=== PATIENT | male | born 1990 | race Caucasian/White ===

== ENCOUNTER 2023-09-10 19:31 | Emergency (ER) | payer OTHER, SELFPAY ==
[2023-09-10 19:37] VITALS: BP 156/103
[2023-09-10 19:59] LABS: % Basophils 0.7 % (0-2); % Eosinophils 1.6 % (0-6); % Immature Granulocytes 0.4 % (0-0.5); % Lymphocytes 44.8 % (20.5-51.1); % Monocytes 10.5 % (1.7-9.3); Absolute Basophils 0.1 10^3/uL (0-0.2); Absolute Eosinophils 0.1 10^3/uL (0-0.7); Absolute Lymphocytes 3.6 10^3/uL (1.2-3.4); Absolute Monocytes 0.8 10^3/uL (0.1-0.6); Absolute Neutrophils 3.4 10^3/uL (1.4-6.5); Hematocrit 49.9 % (39.0-52.0); Hemoglobin 17.3 g/dL (13.0-18.0); Mean Corp Hgb Conc. 34.7 g/dL (33.0-37.0); Mean Corpuscular Hgb 29.8 pg (27.0-31.0); Mean Corpuscular Volume 85.9 fL (80.0-94.0); Mean Platelet Volume 10.4 fL (7.4-10.4); Nucleated Red Blood Cells % 0 % (-); Platelet Count 264 10^3/uL (130-400); Red Blood Cell Count 5.81 10^6/uL (4.70-6.10); Red Cell Dist. Width 13.2 % (11.5-14.5)
[2023-09-10 20:16] LABS: ALT (SGPT) 72 U/L (0-50); AST (SGOT) 37 U/L (17-59); Albumin 5.2 g/dl (3.5-5.0); Alkaline Phosphatase 63 U/L (38-126); Blood Urea Nitrogen 16 mg/dl (9-20); Calcium 10.3 mg/dl (8.4-10.2); Carbon Dioxide 22 mmol/L (22-30); Chloride 104 mmol/L (98-107); Glucose 97 mg/dl (70-99); Lipase 79 U/L (23-300); Potassium 4.3 mmol/L (3.5-5.1); Sodium 136 mmol/L (135-145); Total Bilirubin 0.9 mg/dl (0.2-1.3); Total Protein 8.3 g/dl (6.3-8.2); eGFR > 60.00
[2023-09-10 20:23] LABS: Troponin I 0.037 ng/ml
[2023-09-10 21:30] VITALS: BP 144/84
[2023-09-10 23:30] VITALS: BP 133/79
--- NOTE | 2023-09-11 00:08 | ED.GENMED ---
History of Present Illness
General
Chief Complaint: Abdominal Symptoms
Source: patient
Exam Limitations: none
Time Seen by Provider: 09/10/23 20:46
Nursing documentation reviewed up to this point in time: agreed with
Travel History
Have you had any contact with someone who has COVID-19?: No
Do you have any symptoms of coronavirus? Fever > 100 degrees, chills, cough, shortness of breath, sore throat, loss of taste or smell, muscle aches, or headache?: No
History of Present Illness
History of Present Illness:
Patient was tested positive for COVID-19 in May, and has had ongoing 'long COVID syndrome', presents to ED secondary to 'lump' felt in his upper abdomen when he stretched his arms this evening, along with pain. Patient has had history of of
inguinal hernia repair, and is wondering whether or not he may be experiencing another abdominal hernia. Denies fever. Denies chest pain. Denies shortness of breath. Denies back pain. Denies direct trauma. Denies recent change in medications
or diet.
Past History
Past History
ED Past Medical History: Asthma and GERD
Social History
Tobacco: Non-smoker
Alcohol: Occasional
Drug: Marijuana
Living: with family
Employment: Employed
Review of Systems
Review of Systems
Allergies reviewed?: Yes
All Other Systems: ROS reviewed and negative except as documented in HPI and ROS
Constitutional: Reports no symptoms; Denies fever
EENT: Reports no symptoms
Respiratory: Reports no symptoms
Cardiac: Reports no symptoms
ABD/GI: Reports abdominal pain
: Reports no symptoms
Musculoskeletal: Reports no symptoms
Skin: Reports other (Skin lump)
Neurological: Reports no symptoms
Phy Exam
Physical Exam
Physical Exam:
Physical Exam
General: no apparent distress, not acutely ill. afebrile
Head: nc/at. eomi
Neck: supple. no meningeal signs.
Heart: s1/s2 regular rate and rhythm, no murmur. equal radial pulses.
Lungs: no acute respiratory distress. clear bilaterally
Abdomen: normal bowel sounds. mild epigastric tenderness noted, without distention/swelling/ecchymosis
Neuro: alert and oriented. no focal neurological deficits
Skin: no rash
Psychiatric: well kept. interactive and cooperative
Extremities: no edema. no calf tenderness.
Course
Orders/Labs/Results
Orders:
Orders
09/10/23 19:39
Electrocardiogram (*1) Urgent
Reason for Study: Abdominal Pain
EKG- Treatment ONCE
09/10/23 19:48
Complete Blood Count/With Diff Urgent
Comprehensive Metabolic Panel Urgent
Lipase Urgent
Troponin I Urgent
09/10/23 21:28
CR Chest - 2 Views Urgent
Comment:
Reason For Exam: chest pain
US Abdomen Complete/Upper Urgent
Comment:
Reason For Exam: epigastric pain with 'mass'
Abnormal Lab Results
09/10/23
19:48
Absolute Lymphs (auto) 3.6 H 10^3/uL
(1.2-3.4)
Absolute Monos (auto) 0.8 H 10^3/uL
(0.1-0.6)
Neutrophils % 42.0 L %
(42.2-75.2)
Monocytes % 10.5 H %
(1.7-9.3)
Calcium 10.3 H mg/dl
(8.4-10.2)
ALT 72 H U/L
(0-50)
Troponin I 0.037 H* ng/ml
Total Protein 8.3 H g/dl
(6.3-8.2)
Albumin 5.2 H g/dl
(3.5-5.0)
09/10/23 19:48
09/10/23 19:48
Vital Signs
Initial and Last Documented VS:
Initial Vital Signs
Temp Pulse Resp BP Pulse Ox
98.7 F 88 18 156/103 98
09/10/23 19:37 09/10/23 19:37 09/10/23 19:37 09/10/23 19:37 09/10/23 19:37
Last Documented Vital Signs
Temp Pulse Resp BP Pulse Ox
98.7 F 72 14 133/79 99
09/10/23 19:37 09/10/23 23:30 09/10/23 23:30 09/10/23 23:30 09/10/23 23:30
MDM/Problems Addressed
MDM/Problems Addressed:
Mildly elevated troponin noted, which appears to be chronic, when reviewing his previous blood work. In addition, history and exam inconsistent with ACS, along with no component of chest pain.
History and exam consistent with likely gastritis versus ventral hernia, now resolved. As such, patient will be discharged home in stable condition, with referral to GI/general surgery for an outpatient consultation.
*Critical Care Note
Total Time (30-74mins, 75-104mins- exclusive of procedures): Not Applicable
ED Attending Note
-
Portions of this chart may have been created with voice recognition software.� Occasional wrong word or��sound alike� substitutions may have occurred due to the inherent limitations of voice recognition software.
Discharge Plan
Departure
Patient Disposition: Home (Routine Discharge)
Date of Disposition: 09/11/23
Time of Disposition: 00:09
Patient with high blood pressure during this ER visit?: Yes
Condition: Good
Discharge Problem:
Abdominal pain
Instructions: Abdominal Hernia (DC), Abdominal Pain
Prescriptions:
No Action
ascorbic acid (vitamin C) [Vitamin C] 500 MG tablet
500 mg PO DAILY PRN (Reason: supplement)
zinc 10 MG tablet
10 mg PO DAILY PRN (Reason: supplement)
ibuprofen [Advil Liqui-Gel] 200 mg Capsule
200 mg PO BIDPRN PRN (Reason: mild pain)
calcium carbonate [Calcium 500] 500 mg calcium (1,250 mg) Tablet
500 mg PO DAILY PRN (Reason: supplement)
testosterone cypionate 200 mg/mL Oil
200 mg IM Q2W
bupropion HCl 300 mg Tablet Extended Release 24 Hr
300 mg PO DAILY
cholecalciferol (vitamin D3) 50 mcg (2,000 unit) Tablet
50 mcg PO DAILY PRN (Reason: supplement)
magnesium citrate 100 mg Tablet
200 mg PO DAILYPRN PRN (Reason: supplement)
potassium 100 mg tablet
100 mg PO DAILYPRN PRN (Reason: supplement)
Referrals:
Della Allen MD [Active] -
Kirk Bland MD [Active] -
UNKNOWN - PT DOES,NOT KNOW [Family Provider] -
Activity Restrictions/Additional Instructions:
As discussed, please follow-up with referred general surgeon and/or GI physician for further evaluation and treatment. Please return to ED with worsening symptoms, i.e. fever/worsening pain/vomiting.
Interventions
Interventions:
*Risk Screen - Suicide Last Done: 09/10/23 21:24
*General Assessment Last Done: 09/10/23 19:38
*Neglect/Abuse Screening Last Done: 09/10/23 21:24
ED- Fall Risk Assessment Last Done: 09/10/23 21:24
*ED COVID-19 Vaccine History Last Done: 09/10/23 19:38
*Nursing Disposition Last Done: 09/11/23 00:32
J[facility]-Mtfe[facility]-[id number] Assessment Last Done: 09/10/23 21:24
Discharge Date and Time
Discharge Date/Time: 09/11/23 00:33
Print Language: KHMER
== END 2023-09-11 00:33 | disposition home or self-care (01) ==
LOC: EMR 19:31
PROVIDERS: EMERGENCY PHYSICIAN Emergency Medicine
DX: R10.9 Unspecified abdominal pain (principal); R19.06 Epigastric swelling, mass or lump; R03.0 Elevated blood-pressure reading, without diagnosis of hypertension
CPT/HCPCS: 99285; 71046; 76700; 80053; 83690; 84484; 85025; 93005